=== PATIENT | male | born 1980 | race Caucasian/White ===

== ENCOUNTER 2017-02-13 08:28 | Emergency (ER) | payer BC, OTHER ==
[~2017-02-13] VITALS: Ht 182.9 cm; Wt 114.0 kg
[~2017-02-13 08:28] MED LIST: GLCPUNK PO
[2017-02-13 08:35] VITALS: BP 146/84; PULSE 76; TEMP 36.8; O2SAT 98; Ht 182.9 cm; Wt 114.0 kg
[2017-02-13] MEDS ORDERED: XYLOCAINE 1%/SOD BICARB 20 ML VIAL INFIL ONE (09:00)
[2017-02-13] MEDS ORDERED: CEPH500C2 PO (09:37)
--- NOTE | 2017-02-13 12:56 | EMERGENCY ROOM VISIT NOTE ---
ED Visit Note First contact with patient: 08:40 Chief Complaint: I stabbed my left thumb. History of Present Illness: Mr. Ji is a 36-year-old white male who ambulates into the ED complaining of a stabbing wound to the left thumb. Patient reports less than an hour ago he reports he was cutting open a box with a brand-new pocket knife and accidentally stabbed his finger. He reports the blade entered the lateral aspect of the thumb and came out the posterior aspect of the thumb causing 2 full-thickness lacerations. He reports she control bleeding prior to arrival at the hospital but did not clean the wound. Associated with his wound he is complaining of thumb pain. He describes this as a burning and throbbing sensation. He rates his discomfort 6/10. The pain is nonradiating. The pain worsens with palpation of the wound. He has not identified any alleviating factors related to the pain. He has not had a medications for pain prior to arrival at the hospital. Associated with his wound he reports he has mild numbness and tingling over the posterior aspect of the thumb. Review of Systems: As noted above in history of present illness. Past Medical History: Diabetes. Current Medications: Glucophage. Allergies to Medications: Penicillin. Social History: Patient is currently employed; he feels safe in his home environment; he admits to tobacco use and denies alcohol use. Tetanus Immunization Status: September 2010. Physical Examination: Vital Signs: Date Time Temp Pulse Resp B/P (MAP) Pulse Ox O2 Delivery O2 Flow Rate FiO2 02/13/17 08:35 36.8 76 18 146/84 98 Room Air GENERAL: 36-year-old male in mild distress due to pain, nontoxic-appearing, afebrile and hemodynamically stable. NEUROLOGICAL: Awake, alert and oriented to person, place and time. Answering questions appropriately and following commands. SKIN: Warm, dry and pink. Left Thumb: Stab wound producing to full-thickness lacerations measuring a total of 3.4 cm. No active bleeding. LEFT THUMB: Please see soft tissue injury as noted above. No gross bony deformity. No tenderness over the MCP or interphalangeal joint. Full range of motion in flexion, extension and abduction and abduction of the MCP and flexion and extension of the interphalangeal joint against resistance. Throughout the thumb the skin was warm and pink and capillary refill is brisk. He was able to distinguish light sensations through all dermatomes but reported mild paresthesias over the posterior thumb just distal to the interphalangeal joint. ED Course: Patient is assessed as noted above. Patient's medication list was reviewed. Patient was offered pain medication and refused. Wound Repair: Complexity: Basic Verbal consent was obtained after the risks and benefits were explained. The skin was prepped with betadine and a sterile field set. Wound edges of the wounds were anesthetized with a total of 3.4 ml buffered 1% lidocaine. The wounds were explored for foreign bodies and none found. Copious irrigation was performed using sterile saline. With direct pressure the bleeding subsided. Debridement was not performed. The wound edges were approximated using 5-0 Ethilon with a total of 10 simple interrupted sutures. Hemostasis and excellent approximation was achieved. Patient's thumb was placed in a metal thumb splint. Antibacterial ointment and a sterile dressing applied. No complications and the patient tolerated the procedure well. Patient was educated about tonight's findings and instructed on his treatment plan; he verbalizes understanding and agreement with this plan. Clinical Impression: Lacerations of the left thumb. Disposition: Patient discharged home in stable condition; prior to departure he was reassessed and subjectively reported he was pain-free. Plan: Comfort measures, wound care, and signs of infection were discussed with the patient. Patient was prescribed Keflex 500 mg 4 times a day for 7 days from biotic prophylaxis. Patient was encouraged to follow-up with PCP or return to the ED for any signs of infection, worsening thumb weakness/numbness/tingling or any new/concerning symptoms.
== END 2017-02-13 09:55 | disposition home or self-care (01) ==
LOC: C.EDB 08:31
DX: S61.012A Laceration without foreign body of left thumb without damage to nail, initial encounter (principal); W26.0XXA Contact with knife, initial encounter; E11.9 Type 2 diabetes mellitus without complications; F17.200 Nicotine dependence, unspecified, uncomplicated

== ENCOUNTER 2024-10-14 12:47 | Observation (INO) ==
[2024-10-14] MEDS: MAGNESIUM SULFATE / D5W 1 GM/100 ML BAG IV SCH (13:11)
[2024-10-14] MEDS: SODIUM CHLORIDE 0.9% 1,000 ML IV ONE (13:11)
[2024-10-14 13:24] LABS: Hematocrit (blood only) 48.1 % (42.0-52.0); Hemoglobin 16.4 g/dl (14.0-18.0); Immature Granulocytes # (auto) 0.08 K/uL (0.01-0.20); Immature Granulocytes % (auto) 0.5 %; Mean Corpuscular Hemoglobin 25.7 pg (25.0-34.0); Mean Corpuscular Volume 75.5 fL (80.0-100.0); Platelet Count 251 K/uL (130-400); RDW Standard Deviation 39.9 fL (36.4-46.3); Red Blood Count 6.37 M/uL (4.70-6.10); White Blood Count 16.12 K/ul (4.8-10.8)
[2024-10-14 13:45] LABS: Alanine Aminotransferase 11.0 U/L (7-52); Albumin Globulin Ratio 1.0 (0.9-2); Alkaline Phosphatase 73.0 U/L (34-104); Anion Gap 13.0 (3-11); Bilirubin,Total 0.8 mg/dl (0.2-1.0); Blood Urea Nitrogen 28.0 mg/dl (6-23); Calcium 9.9 mg/dl (8.6-10.3); Carbon Dioxide 21.0 mmol/L (21-32); Chloride 98.0 mmol/L (98-107); Creatinine Clr Calc Pharmacy 76.2 ml/min; Globulin 4.2 gm/dl (2.5-4.0); Glucose 270.0 mg/dl (70-99(Fasting)); Magnesium 2.5 mg/dl (1.7-2.4); Potassium 4.5 mmol/L (3.5-5.1); Sodium 132.0 mmol/L (136-145); Total Protein 8.5 gm/dl (6.0-8.3)
[2024-10-14 14:29] LABS: Influenza A virus by PCR Negative (Neg); Influenza B virus by PCR Negative (Neg); SARS CoV2 RNA(COVID-19) Ceph NEGATIVE (Negative)
[2024-10-14] MEDS: OPTIRAY 320 100ml IV ONE (14:40)
--- NOTE | 2024-10-14 15:12 | CT Scan Report ---
CHEST CT WITH CONTRAST CT DOSE: 889.03 mGy.cm HISTORY: Acute chest pain and shortness of breath Sternal infection, SOB, PNA TECHNIQUE: Multiaxial CT images of the chest were performed following the IV administration of 90 cc of Optiray. A dose lowering technique was utilized adhering to the principles of ALARA. COMPARISON: CT chest 10/31/2023 FINDINGS: Unremarkable thyroid. Mediastinal lymphadenopathy includes a right paratracheal 1.3 x 1.8 c m lymph node on image 50 series 4 which has increased in size from prior. There is a small pericardia l effusion noted along with associated pericardial thickening with adjacent inflammatory stranding. E xtensive coronary artery calcifications. Prior median sternotomy with findings suggestive of CABG. Th ere is inflammatory stranding both superficial and deep to the sternotomy wires. No drainable fluid c ollections. Incomplete bony healing of the sternotomy site with bony irregularity a lucency at the st ernal manubrial articulation. Trace right pleural effusion with subsegmental bibasilar dependent atelectasis. No pneumothorax or ai rspace consolidation typical for pneumonia. Central airways are patent. No acute upper abdominal abno rmality. Mild nonspecific distal esophageal wall thickening. Cholelithiasis. Probable hepatic steatos is. IMPRESSION: 1. Interval postoperative changes of prior median sternotomy and CABG. There is edema with inflammato ry stranding surrounding the sternotomy wires along with bony irregularity/lytic changes at the garcia al manubrial articulation. Findings are suggestive of cellulitis and osteomyelitis without abscess. 2. Small pericardial effusion with possible pericarditis. 3. Likely reactive mediastinal lymphadenopathy. 4. Trace right pleural effusion with mild subsegmental dependent atelectasis. ACT 112: Negative or not required by law. Electronically signed by: Goyo Dior M.D. 10/14/2024 3:10 PM
--- NOTE | 2024-10-14 15:51 | Electrocardiogram Report ---
Test Reason : Blood Pressure : */* mmHG Vent. Rate : 125 BPM Atrial Rate : * BPM P-R Int : * ms QRS Dur : 82 ms QT Int : 260 ms P-R-T Axes : * -35 110 degrees QTcB Int : 375 ms Atrial fibrillation with rapid ventricular response Left axis deviation possible Inferior infarct , age undetermined Confirmed by Stephan Ceron ([id number]) on 10/14/2024 3:51:02 PM Referred By: Confirmed By: Stephan Ceron
--- NOTE | 2024-10-14 16:11 | Emergency Department Note ---
Impression & Plan Elevated troponin, Atrial fibrillation, Sternal wound infection ED Provider Note NAME: FINA SANDERS AGE: 44 SEX: M : 1980 ARRIVES VIA: Walk-In INFORMANT: Patient, ED PROVIDER(S): Kylee Lindquist MD CHIEF COMPLAINT: Shortness of breath, fatigue, leg cramps, chest pain HPI: This is a 44-year-old male presented for chest pain, shortness of breath, fatigue. Patient notes that over the past few days he has had right-sided chest pain. he notes no specific fevers. He reports fatigue, leg cramps. He reports some slight shortness of breath with exertion. He reports previous history of triple bypass and complications related to the sternum or healing. He notes he has had infections of the sternum and is seen by wound care. His wound is finally closing up. He has no current pain, swelling over this region anymore. ROS: See above HPI for pertinent positives & negatives. A total of 10 systems reviewed and were otherwise negative. PAST MEDICAL HISTORY: See Below PAST SURGICAL HISTORY: See Below FAMILY HISTORY: See Below SOCIAL HISTORY: See Below HOME MEDICATIONS: See Below ALLERGIES: See Below VITALS: See Below PHYSICAL EXAMINATION: General: resting comfortably in no acute distress Head: Normocephalic and atraumatic Eyes: Normal inspection, extraocular muscles intact Ear, nose, throat: Normal external exam Neck: Normal range of motion Respiratory: lungs clear to auscultation bilaterally Cardiovascular: Regular rate/rhythm, no murmur Chest wall; pink granulation tissue overlying lower sternal border, no swelling, tenderness GI: soft, nontender, no guarding or rebound Extremities: nontender, moves all extremities Neuro: The patient awake and alert, appropriately conversive, no focal deficits, symmetric faces Skin: Warm, dry, and intact MEDICAL DECISION MAKING: This is a 44-year-old male presenting for chest pain, short of breath and fatigue. Patient is in new A-fib with RVR on arrival. His pulse rate was elevated at 120s. Upon arrival to the room he is at 100s. Consider upper respiratory infection, ACS, pericarditis, anemia. Patient on stable dose of Plavix without any missed doses for previous atrial fibrillation. Low concern for PE clinically due to the his blood thinner as well as no hypoxia. He has not missed any doses as per self-report. - Blood reviewed with a leukocytosis 16.12. Slight hyponatremia noted. Troponin elevated at 40s x2. - ECG independently interpreted by me with atrial fibrillation with RVR at a rate of 125, left axis devia osteomyelitis tion, normal QRS, normal QTc, no ST segment elevations consistent with STEMI criteria - Will do stat CT to rule out pneumonia, deep space infection due to this patient's previous dental wound appears normal does appear clinically well without signs of current infection on the surface - CT imaging does reveal possible cellulitis/osteomyelitis without abscess however clinically patient has no current pain overlying, no erythema, tenderness. - Otherwise there is reports a small pericardial effusion with possible pericarditis. -Due to patient's A-fib with RVR, elevated troponin pleural effusion/pericarditis, will admit the patient. Care discussed with Dr. Kay - Patient comfortable with this plan Differential diagnosis: ACS, PE, pericarditis, anemia, URI, pneumonia, PE Independent History obtained from: Diagnostics interpreted by me: ECG: See above Cardiac Monitoring: An order was placed for continuous cardiac monitoring. The monitor shows a rate of 101 with atrial fibrillation rhythm. 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 Durham [facility] Coronary artery disease Atrial fibrillation (Acute) Benign essential hypertension Dyslipidemia (high LDL; low HDL) Tobacco use disorder Type 2 diabetes mellitus Restless leg syndrome GERD without esophagitis Medical History Abnormal nuclear stress test Non-ST elevation [place] (NSTEMI) Erectile dysfunction Class 2 obesity Hypogonadism in male Subclinical hypothyroidism (~09/01/22) Surgical History Hx of CABG Hx of right knee surgery History of tonsillectomy and adenoidectomy Hx of sinus surgery History of throat surgery Hx of rotator cuff surgery Family History Father Diabetes COPD (chronic obstructive pulmonary disease) Myocardial infarction Grandmother (Maternal) Diabetes Grandmother (Paternal) Diabetes Parkinson disease Mother Diabetes COPD (chronic obstructive pulmonary disease) Sister Epilepsy Heart disease Grandfather (Maternal) Colorectal cancer Grandfather (Paternal) Diabetes Social History Smoking Status: Never smoker Tobacco Type: Smokeless Tobacco (Dip or Chew) Age Started Using Tobacco: 11; Age Quit Using Tobacco: 24; packs per day: 1; Do You Dip or Chew Tobacco: Yes; Hx Alcohol Use: No Hx Substance Use: No Preferred Language: Kiswahili Communication Ability: Effective Investigation Division Captain Required: No Beliefs That Will Affect Care: None marital status: Current Living Situation: Family Current Living Situation Comment: and kids current occupational status: employed current occupation: truck terminal manager Feels Safe at Home: Yes Assistive Devices: None Allergies Allergies Allergy/AdvReac Type Severity Reaction Status Date / Time prednisone Allergy Severe Unknown Verified 06/04/24 10:16 Penicillins Allergy Mild Hives Verified 06/04/24 10:16 Home Meds Home Medications Medication Instructions Recorded Confirmed aspirin 81 mg tablet,delayed 81 mg PO UD 08/15/22 10/14/24 release (Adult Low Dose Aspirin) magnesium oxide 0 mg PO HS 11/15/23 10/14/24 omeprazole 20 mg capsule,delayed 0 mg PO BID 10/14/24 10/14/24 release Previous Rx's Medication Instructions Recorded famotidine 40 mg tablet 40 mg PO DAILY #90 tabs 10/23/23 pen needle, diabetic 32 gauge x #300 ea 11/21/23" (BD Ultra-Fine June Pen Needle) tirzepatide 12.5 mg/0.5 mL 12.5 mg (0.5 mL) subcut .WEEKLY #4 03/28/24 subcutaneous pen injector syringes blood-glucose sensor (FreeStyle #4 ea 05/03/24 Jonathan 3 Plus Sensor device) clopidogrel 75 mg tablet 75 mg PO DAILY #90 tabs 05/20/24 empagliflozin 25 mg tablet 25 mg PO DAILY #90 tabs 05/28/24 (Jardiance) atorvastatin 80 mg tablet 80 mg PO DAILY #90 tabs 07/03/24 ropinirole 4 mg tablet 4 mg PO HS #90 tabs 07/03/24 metformin 1,000 mg tablet 1,000 mg PO BID #180 tabs 07/15/24 fenofibrate micronized 134 mg 134 mg PO QPM #90 caps 09/10/24 capsule metoprolol tartrate 50 mg tablet 50 mg PO BID #60 tabs 10/15/24 Results & Data (ED) Vital Signs Vital Signs - 24 hr 10/14/24 12:49 10/14/24 13:10 10/14/24 13:44 Temperature 36.6 C Temperature Source Temporal Artery Scan Pulse Rate 75 Pulse Rate [Apical] 111 H 101 H Pulse Rhythm [Apical] Irregular Respiratory Rate 18 96 H 20 Respiratory Effort / Characteristics Non-Labored Spontaneous Non-Labored Spontaneous Non-Labored Respiratory Depth Normal Normal Normal Respiratory Pattern Regular Blood Pressure 119/81 Blood Pressure [Right Arm] 151/90 H 117/84 Blood Pressure Mean 93 Blood Pressure Mean [Right Arm] 110 95 Pulse Oximetry 97 96 96 Oxygen Delivery Method Room Air Room Air Room Air Sepsis Recent Fever Within 48 Hours No Sepsis New/Unexplained Change in Mental Status N/A Sepsis Action Taken by Nursing No Action Required 10/14/24 13:50 10/14/24 14:53 10/14/24 15:14 Temperature Temperature Source Pulse Rate 103 H Pulse Rate [Apical] 99 H 89 Pulse Rhythm [Apical] Respiratory Rate 20 20 Respiratory Effort / Characteristics Non-Labored Non-Labored Respiratory Depth Normal Normal Respiratory Pattern Blood Pressure Blood Pressure [Right Arm] 118/80 110/84 Blood Pressure Mean Blood Pressure Mean [Right Arm] 92 92 Pulse Oximetry 94 94 Oxygen Delivery Method Room Air Room Air Sepsis Recent Fever Within 48 Hours Sepsis New/Unexplained Change in Mental Status Sepsis Action Taken by Nursing Laboratory Data 10/15/24 05:32 10/15/24 05:32 Lab Results 10/14/24 10/14/24 10/14/24 Range/Units 13:02 13:39 14:48 WBC 16.12 H (4.8-10.8) K/ul RBC 6.37 H (4.70-6.10) M/uL Hgb 16.4 (14.0-18.0) g/dl Hct 48.1 (42.0-52.0) % MCV 75.5 L (80.0-100.0) fL MCH 25.7 (25.0-34.0) pg MCHC 34.1 (32.0-36.0) g/dL RDW Std Deviation 39.9 (36.4-46.3) fL RDW Coeff of Saadia 15.8 H (11.5-14.5) % Plt Count 251 (130-400) K/uL MPV 11.3 (9.4-12.4) fL Immature Gran % (Auto) 0.5 % Neut % (Auto) 75.0 % Lymph % (Auto) 14.7 % [place] % (Auto) 9.2 % Eos % (Auto) 0.1 % Baso % (Auto) 0.5 % Neut # (Auto) 12.09 H (1.40-6.50) K/uL Lymph # (Auto) 2.37 (1.20-3.40) K/uL [place] # (Auto) 1.49 H (0.11-0.59) K/uL Eos # (Auto) 0.01 (0.00-0.50) K/uL Baso # (Auto) 0.08 (0.00-0.20) K/uL Immature Gran # (Auto) 0.08 (0.01-0.20) K/uL Sodium 132 L (136-145) mmol/L Potassium 4.5 (3.5-5.1) mmol/L Chloride 98 (98-107) mmol/L Carbon Dioxide 21 (21-32) mmol/L Anion Gap 13 H (3-11) BUN 28 H (6-23) mg/dl Creatinine 1.25 (0.6-1.4) mg/dl Est Cr Clr Drug Dosing 76.2 ml/min eGFR 71.92 BUN/Creatinine Ratio 22.4 H (10-20) Glucose 270 H (70-99(Fasting)) mg/dl Estimat Average Glucose 180 mg/dl Hemoglobin A1c 7.9 H (4.5-5.6) % Calcium 9.9 (8.6-10.3) mg/dl Magnesium 2.5 H (1.7-2.4) mg/dl Total Bilirubin 0.8 (0.2-1.0) mg/dl AST 11 L (13-39) U/L ALT 11 (7-52) U/L Alkaline Phosphatase 73 (34-104) U/L Troponin I High Sens 44.9 H 42.3 H (0-20) pg/ml Total Protein 8.5 H (6.0-8.3) gm/dl Albumin 4.3 (3.4-5.0) gm/dl Globulin 4.2 H (2.5-4.0) gm/dl Albumin/Globulin Ratio 1.0 (0.9-2) Free T3 2.81 (2.3-4.2) pg/ml SARS-CoV-2 (PCR) NEGATIVE (Negative) Influenza Type A (PCR) Negative (Neg) Influenza Type B (PCR) Negative (Neg) RSV (RT-PCR) Negative (Neg) Administered Medications Discontinued Medications Aspirin (Aspirin 81 Mg Ectab) 81 mg PO DAILY MISHA Stop: 11/14/24 08:59 Last Admin: 10/15/24 08:56 Dose: 81 mg Documented By: SARA Atorvastatin Calcium (Atorvastatin 40 Mg Tab) 80 mg PO DAILY MISHA Stop: 11/14/24 08:59 Last Admin: 10/15/24 08:37 Dose: 80 mg Documented By: SARA Clopidogrel Bisulfate (Clopidogrel Bisulfate 75 Mg Tab) 75 mg PO DAILY MISHA Stop: 11/14/24 08:59 Last Admin: 10/15/24 08:56 Dose: 75 mg Documented By: SARA Famotidine (Famotidine 40 Mg Tablet) 40 mg PO DAILY MISHA Stop: 11/14/24 08:59 Last Admin: 10/15/24 08:37 Dose: 40 mg Documented By: SARA Fenofibrate (Fenofibrate Nanocrystallized 145 Mg Tablet) 145 mg PO QPM MISHA Stop: 11/13/24 20:59 Last Admin: 10/14/24 21:36 Dose: 145 mg Documented By: MOSES Sodium Chloride (Nss) 1,000 mls @ 999 mls/hr IV .Q1H1M ONE Stop: 10/14/24 13:58 Last Infusion: 10/14/24 13:59 Dose: Infused Documented By: Admin: 10/14/24 13:11 Dose: 999 mls/hr Documented By: SUSIE Magnesium Sulfate/Dextrose (Magnesium Sulfate / D5w) 1 gm in 100 mls @ 200 mls/hr IV Q30M MISHA Stop: 10/14/24 13:57 Last Infusion: 10/14/24 14:53 Dose: Infused Documented By: LUIS A Admin: 10/14/24 13:59 Dose: 200 mls/hr Documented By: Infusion: 10/14/24 13:41 Dose: Infused Documented By: Admin: 10/14/24 13:11 Dose: 200 mls/hr Documented By: SUSIE Sodium Chloride (Nss) 1,000 mls @ 80 mls/hr IV .[id number] [facility] Stop: 10/17/24 19:21 Last Admin: 10/15/24 08:57 Dose: Not Given Documented By: Infusion: 10/15/24 08:57 Dose: Infused Documented By: Admin: 10/14/24 20:40 Dose: 80 mls/hr Documented By: MOSES Insulin Aspart (Insulin Aspart Per Unit Charge) 0 units SC ACHS [facility] Stop: 11/13/24 19:21 Last Admin: 10/15/24 17:34 Dose: Not Given Documented By: Admin: 10/15/24 12:52 Dose: 4 units Documented By: SARA Co-signed By: ANATOLY Admin: 10/15/24 08:56 Dose: Not Given Documented By: Admin: 10/14/24 20:41 Dose: Not Given Documented By: Admin: 10/14/24 19:54 Dose: 3 units Documented By: SHAHIDA Co-signed By: NICOLE Ioversol (Optiray 320 100ml) 90 ml IV ONCE ONE Stop: 10/14/24 14:41 Last Admin: 10/14/24 14:40 Dose: 90 ml Documented By: DILCIA Magnesium Oxide (Magnesium Oxide 400 Mg Tab) 200 mg PO HS MISHA Stop: 11/13/24 20:59 Last Admin: 10/14/24 21:05 Dose: 200 mg Documented By: MOSES Metoprolol Tartrate (Metoprolol Tartrate 50 Mg Tab) 50 mg PO BID MISHA Stop: 11/13/24 20:59 Last Admin: 10/15/24 08:56 Dose: 50 mg Documented By: Admin: 10/14/24 21:36 Dose: 50 mg Documented By: MOSES Miscellaneous (Order Awaiting Action---Jardiance 25mg) 1 each N/A QS [facility] Stop: 11/14/24 00:00 Last Admin: 10/15/24 15:04 Dose: Not Given Documented By: Admin: 10/15/24 08:36 Dose: Not Given Documented By: Admin: 10/14/24 23:04 Dose: Not Given Documented By: MOSES Ropinirole HCl (Ropinirole Hcl 2 Mg Tablet) 4 mg PO HS MISHA Stop: 11/13/24 20:59 Last Admin: 10/14/24 21:05 Dose: 4 mg Documented By: MOSES Imaging Data Radiologist's Impression: Chest CT 10/14/24 13:[address] WITH CONTRAST CT DOSE: 889.03 mGy.cm HISTORY: Acute chest pain and shortness of breath Sternal infection, SOB, PNA TECHNIQUE: Multiaxial CT images of the chest were performed following the IV administration of 90 cc of Optiray. A dose lowering technique was utilized adhering to the principles of ALARA. COMPARISON: CT chest 10/31/2023 FINDINGS: Unremarkable thyroid. Mediastinal lymphadenopathy includes a right paratracheal 1.3 x 1.8 cm lymph node on image 50 series 4 which has increased in size from prior. There is a small pericardial effusion noted along with associated pericardial thickening with adjacent inflammatory stranding. Extensive coronary artery calcifications. Prior median sternotomy with findings suggestive of CABG. There is inflammatory stranding both superficial and deep to the sternotomy wires. No drainable fluid collections. Incomplete bony healing of the sternotomy site with bony irregularity a lucency at the sternal manubrial articulation. Trace right pleural effusion with subsegmental bibasilar dependent atelectasis. No pneumothorax or airspace consolidation typical for pneumonia. Central airways are patent. No acute upper abdominal abnormality. Mild nonspecific distal esophageal wall thickening. Cholelithiasis. Probable hepatic steatosis. IMPRESSION: 1. Interval postoperative changes of prior median sternotomy and CABG. There is edema with inflammatory stranding surrounding the sternotomy wires along with bony irregularity/lytic changes at the sternal manubrial articulation. Findings are suggestive of cellulitis and osteomyelitis without abscess. 2. Small pericardial effusion with possible pericarditis. 3. Likely reactive mediastinal lymphadenopathy. 4. Trace right pleural effusion with mild subsegmental dependent atelectasis. ACT 112: Negative or not required by law. Electronically signed by: Goyo Dior M.D. 10/14/2024 3:10 PM Discharge Plan Visit Data Chief Complaint: Illness Stated Complaint: LIGHT HEADED, ALWAYS TIRED, BREATHING PROBLEMS ED Provider: Kylee Lindquist Discharge Problem: Elevated troponin, Atrial fibrillation, Sternal wound infection Patient Disposition: Admitted As Inpatient Condition: Fair Discharge Instructions Interventions: ED Discharge Assessment Last Done: 10/14/24 20:03
--- NOTE | 2024-10-14 16:39 | History & Physical Report ---
Date of Service October 14, 2024 Assessment & Plan (1) Viral gastritis: Plan: IV fluids. Clear liquids for now and advance as tolerated. Parenteral antiemetics. IV fluids. (2) Atrial fibrillation: Plan: Recurrent atrial fibs flutter. Telemetry. Increase metoprolol dosage. Continue aspirin and Plavix therapy. (3) Elevated troponin: Plan: Doubt acute coronary syndrome. No acute EKG changes. Telemetry. Serial troponin levels (4) Coronary artery disease: Plan: History of coronary artery bypass grafting in October 2023 complicated by chronic sternal infection and osteomyelitis. Continue current medical management. Telemetry (5) Type 2 diabetes mellitus: Plan: Clear liquids for now. Advance as tolerated to ADA diet. Sliding scale coverage. Continue Jardiance (6) Benign essential hypertension: Plan: Stable. Continue current medical management Plan Observation with telemetry. IV fluids. Antiemetics. Serial troponin levels. Hopefully home tomorrowOctober 15 History of Present Illness Chief Complaint: Nausea vomiting and fatigue of 2 days duration Primary Care Provider: DELIA Toscano 44-year-old male who has had 2 days of fatigue with nausea and some vomiting. Intermittent low-grade fever. Vague right-sided chest discomfort that is sharp in nature and only with deep inspiration. He was found to have recurrent atrial fibrillation on admission. His last episode was after his open heart surgery back in October 2023. Troponin is minimally elevated. Chest CT scan reveals a small pericardial effusion with some inflammatory stranding and evidence of sternal cellulitis with possible underlying osteomyelitis. This is not new. He is in no distress at this time. Heart rate is minimally elevated and appears to be atrial flutter at this time with mild tachycardia. Metoprolol dosage will be uptitrated. I suspect he has a viral illness causing the acute onset of fatigue, nausea, and vomiting. No diarrhea. No other family members are ill. He denies hematemesis. He is placed in observation with telemetry for further evaluation and treatment. Allergies Allergy/AdvReac Type Severity Reaction Status Date / Time prednisone Allergy Severe Unknown Verified 06/04/24 10:16 Penicillins Allergy Mild Hives Verified 06/04/24 10:16 Home Medications Medication Instructions Recorded Confirmed Type aspirin 81 mg tablet,delayed 81 mg PO UD 08/15/22 10/14/24 History release (Adult Low Dose Aspirin) famotidine 40 mg tablet 40 mg PO DAILY #90 tabs 10/23/23 10/14/24 Rx magnesium oxide 0 mg PO HS 11/15/23 10/14/24 History pen needle, diabetic 32 gauge x #300 ea 11/21/23 06/04/24 Rx 5/32" (BD Ultra-Fine June Pen Needle) tirzepatide 12.5 mg/0.5 mL 12.5 mg (0.5 mL) subcut .WEEKLY #4 03/28/24 10/14/24 Rx subcutaneous pen injector syringes blood-glucose sensor (FreeStyle #4 ea 05/03/24 06/04/24 Rx Jonathan 3 Plus Sensor device) clopidogrel 75 mg tablet 75 mg PO DAILY #90 tabs 05/20/24 10/14/24 Rx empagliflozin 25 mg tablet 25 mg PO DAILY #90 tabs 05/28/24 10/14/24 Rx (Jardiance) atorvastatin 80 mg tablet 80 mg PO DAILY #90 tabs 07/03/24 10/14/24 Rx ropinirole 4 mg tablet 4 mg PO HS #90 tabs 07/03/24 10/14/24 Rx metformin 1,000 mg tablet 1,000 mg PO BID #180 tabs 07/15/24 10/14/24 Rx fenofibrate micronized 134 mg 134 mg PO QPM #90 caps 09/10/24 10/14/24 Rx capsule metoprolol tartrate 25 mg tablet 25 mg PO BID #180 tabs 09/25/24 10/14/24 Rx cyclobenzaprine 10 mg tablet 0 mg PO BID 10/14/24 10/14/24 History omeprazole 20 mg capsule,delayed 0 mg PO BID 10/14/24 10/14/24 History release Past Med/Surg History Problem List (Updated 10/14/24 @ 16:37 by Rylan Leon MD) Coronary artery disease Elevated troponin Viral gastritis Sternal wound infection S/P CABG x 3 (~11/07/23) SEN-LAD, free CARL-OM2, SVG-PLB by Dr. Durham [facility] Coronary artery disease Atrial fibrillation Benign essential hypertension Dyslipidemia (high LDL; low HDL) Tobacco use disorder Type 2 diabetes mellitus Restless leg syndrome GERD without esophagitis Medical History Abnormal nuclear stress test Non-ST elevation DE (NSTEMI) Erectile dysfunction Class 2 obesity Hypogonadism in male Subclinical hypothyroidism (~09/01/22) Surgical History Hx of CABG Hx of right knee surgery History of tonsillectomy and adenoidectomy Hx of sinus surgery History of throat surgery Hx of rotator cuff surgery Family History Father Diabetes COPD (chronic obstructive pulmonary disease) Myocardial infarction Grandmother (Maternal) Diabetes Grandmother (Paternal) Diabetes Parkinson disease Mother Diabetes COPD (chronic obstructive pulmonary disease) Sister Epilepsy Heart disease Grandfather (Maternal) Colorectal cancer Grandfather (Paternal) Diabetes Social History Smoking Status: Former smoker Tobacco Type: Smokeless Tobacco (Dip or Chew) Age Started Using Tobacco: 11; Age Quit Using Tobacco: 24; packs per day: 1; Do You Dip or Chew Tobacco: Yes; Hx Alcohol Use: No Hx Substance Use: No Preferred Language: Icelandic Communication Ability: Effective Director Of Operations For Therapy Required: No Beliefs That Will Affect Care: None marital status: Current Living Situation: Family Current Living Situation Comment: and kids current occupational status: employed current occupation: [employer] truck driver Feels Safe at Home: Yes Assistive Devices: None Review of Systems 2 Review of Systems: Constitutionalno fever or chills ENTno blurred vision, no double vision, no epistaxis, no sore throat Respiratoryno cough, no wheezing, no shortness of breath Cardiacno palpitations, no syncope. Intermittent fleeting inspiratory sharp right upper chest discomfort GI24 to 48 hours of nausea and intermittent vomiting. No hematemesis. No diarrhea, melena, hematochezia GUno urinary retention, no urinary incontinence, no dysuria, no hematuria Musculoskeletalno joint pain, no muscle tenderness Skinno bruising, no rashes, no pruritus Neurono isolated weakness, no paresthesia, no weakness Psychno depression, no anxiety Physical Exam 2 Physical Exam: General-alert and oriented x3, no fever, no chills HEENT-head atraumatic and normocephalic, pupils equal and reactive to light, extraocular muscles intact Neck-no lymphadenopathy or thyromegaly, trachea midline Chest-clear to auscultation. No rales, wheezing or rhonchi Cardiac-slightly irregular mildly tachycardic rate and rhythm. Mormal S1 and S2 Abdomen-normal bowel sounds, no hepatosplenomegaly Extremities-no cyanosis, clubbing, or edema Neuro-cranial nerves II through XII intact, motor and sensory function within normal limits, strength symmetrical, no focal deficits Psych-normal affect, normal mood Results & Data Results & Data Vital Signs (Past 12 Hours) Vital Signs Temp Pulse Pulse Resp BP BP Pulse Ox 10/14/24 15:14 89 20 110/84 94 10/14/24 14:53 99 H 20 118/80 94 10/14/24 13:50 103 H 10/14/24 13:44 101 H 20 117/84 96 10/14/24 13:10 111 H 96 H 151/90 H 96 10/14/24 12:49 36.6 C 75 18 119/81 97 O2 Del Method 10/14/24 15:14 Room Air 10/14/24 14:53 Room Air 10/14/24 13:50 10/14/24 13:44 Room Air 10/14/24 13:10 Room Air 10/14/24 12:49 Room Air Laboratory Results 10/14/24 13:02 10/14/24 13:02 Code Status & VTE Plan Code Status Full code PG Care Time/CCT Total # of Minutes Spent Total Time Spent with Patient: Total time spent is greater than 50% in coordination of care (as documented) at patient's floor/unit and/or counseling patient: Coding Level of Care Code 73404 INT INP/OBS CARE 3/75MIN Diagnoses Viral gastritis K29.70 Atrial fibrillation I48.91 Elevated troponin R79.89 Coronary artery disease I25.10 Type 2 diabetes mellitus without complication, without long-term current use of insulin E11.9 Diabetes mellitus chcf insulin use: without chcf use Diabetes mellitus complication status: without complication Benign essential hypertension I10 (5) Type 2 diabetes mellitus Diabetes mellitus termite renewal inspector insulin use: without termite renewal inspector use Diabetes mellitus complication status: without complication Qualified Code(s): E11.9 - Type 2 diabetes mellitus without complications
[2024-10-14] MEDS ORDERED: ACETAMINOPHEN 1,000 MG/100 ML VIAL IV PRN (19:22)
[2024-10-14] MEDS ORDERED: GLUCAGON FOR INJ 1 MG VIAL SQ PRN (19:22)
[2024-10-14] MEDS ORDERED: ONDANSETRON INJ 2 MG/ML 2 ML VIAL IV PRN (19:22)
[2024-10-14] MEDS ORDERED: DEXTROSE 50% 50 ML SYRINGE IV PRN (19:22)
[2024-10-14] MEDS ORDERED: CARBOHYDRATES FOR HYPOGLYCEMIA PO PRN (19:22)
[2024-10-14] MEDS ORDERED: GLUCOSE 10 TAB/TUBE PO PRN (19:22)
[2024-10-14] MEDS ORDERED: GLUCOSE 40% GEL 15 GM TUBE PO PRN (19:22)
[2024-10-14] MEDS: INSULIN ASPART PER UNIT CHARGE SC SCH (19:54)
[2024-10-14] MEDS: SODIUM CHLORIDE 0.9% 1,000 ML IV SCH (20:40)
[2024-10-14] MEDS: MAGNESIUM OXIDE 400 MG TAB PO SCH (21:05)
[2024-10-14] MEDS: FENOFIBRATE NANOCRYSTALLIZED 145 MG TABLET PO SCH (21:36)
[2024-10-14] MEDS: METOPROLOL TARTRATE 50 MG TAB PO SCH (21:36)
[2024-10-14 21:52] LABS: Hemoglobin A1C 7.9 % (4.5-5.6)
[2024-10-15 06:31] LABS: Alanine Aminotransferase 7.0 U/L (7-52); Albumin Globulin Ratio 1.2 (0.9-2); Alkaline Phosphatase 43.0 U/L (34-104); Anion Gap 8.0 (3-11); Bilirubin,Total 0.7 mg/dl (0.2-1.0); Blood Urea Nitrogen 22.0 mg/dl (6-23); Calcium 8.4 mg/dl (8.6-10.3); Carbon Dioxide 23.0 mmol/L (21-32); Chloride 105.0 mmol/L (98-107); Creatinine Clr Calc Pharmacy 118.1 ml/min; Globulin 3.0 gm/dl (2.5-4.0); Glucose 98.0 mg/dl (70-99(Fasting)); Potassium 4.1 mmol/L (3.5-5.1); Sodium 136.0 mmol/L (136-145); Total Protein 6.6 gm/dl (6.0-8.3)
[2024-10-15 06:41] LABS: Hematocrit (blood only) 38.3 % (42.0-52.0); Hemoglobin 13.0 g/dl (14.0-18.0); Immature Granulocytes # (auto) 0.03 K/uL (0.01-0.20); Immature Granulocytes % (auto) 0.3 %; Mean Corpuscular Hemoglobin 26.0 pg (25.0-34.0); Mean Corpuscular Volume 76.6 fL (80.0-100.0); Platelet Count 194 K/uL (130-400); RDW Standard Deviation 41.0 fL (36.4-46.3); Red Blood Count 5.00 M/uL (4.70-6.10); White Blood Count 9.77 K/ul (4.8-10.8)
[2024-10-15 08:10] VITALS: BP 121/71; RESP 18; TEMP 98.2; O2SAT 97
[2024-10-15] MEDS: FAMOTIDINE 40 MG TABLET PO SCH (08:37)
[2024-10-15] MEDS: ATORVASTATIN 40 MG TAB PO SCH (08:37)
[2024-10-15] MEDS: ASPIRIN 81 MG ECTAB PO SCH (08:56)
[2024-10-15] MEDS: CLOPIDOGREL BISULFATE 75 MG TAB PO SCH (08:56)
--- NOTE | 2024-10-15 10:43 | Discharge Summary ---
Discharge Summary Date of Service October 15, 2024 Principal Dx & Hospital Course #1 = Principal Diagnosis (1) Viral gastritis: Resolved. No further nausea and vomiting. Diet has been advanced. IV fluids discontinued. (2) Atrial fibrillation: Recurrent atrial fib/ flutter on admission. He has since converted back to normal sinus rhythm. Telemetry while hospitalized. Metoprolol dosage has been increased. Continue aspirin and Plavix therapy. (3) Elevated troponin: Doubt acute coronary syndrome. No acute EKG changes. Telemetry. Serial troponin levels are not trending and are minimally elevated (4) Coronary artery disease: History of coronary artery bypass grafting in October 2023 complicated by chronic sternal infection and osteomyelitis. Continue current medical management. Telemetry (5) Type 2 diabetes mellitus: Diet has been advanced. Nausea and vomiting has resolved. Sliding scale coverage while hospitalized. Continue Jardiance (6) Benign essential hypertension: Stable. Continue current medical management Plan Home today, October 15 Admission HPI Per Admitting Provider 44-year-old male who has had 2 days of fatigue with nausea and some vomiting. Intermittent low-grade fever. Vague right-sided chest discomfort that is sharp in nature and only with deep inspiration. He was found to have recurrent atrial fibrillation on admission. His last episode was after his open heart surgery back in October 2023. Troponin is minimally elevated. Chest CT scan reveals a small pericardial effusion with some inflammatory stranding and evidence of sternal cellulitis with possible underlying osteomyelitis. This is not new. He is in no distress at this time. Heart rate is minimally elevated and appears to be atrial flutter at this time with mild tachycardia. Metoprolol dosage will be uptitrated. I suspect he has a viral illness causing the acute onset of fatigue, nausea, and vomiting. No diarrhea. No other family members are ill. He denies hematemesis. He is placed in observation with telemetry for further evaluation and treatment. Discharge Exam General-alert and oriented x3, no fever, no chills HEENT-head atraumatic and normocephalic, pupils equal and reactive to light, extraocular muscles intact Neck-no lymphadenopathy or thyromegaly, trachea midline Chest-clear to auscultation. No rales, wheezing or rhonchi Cardiac-regular rhythm. Normal rate. Normal S1 and S2 Abdomen-normal bowel sounds, no hepatosplenomegaly Extremities-no cyanosis, clubbing, or edema Neuro-cranial nerves II through XII intact, motor and sensory function within normal limits, strength symmetrical, no focal deficits Psych-normal affect, normal mood Discharge Plan Discharge Items Patient Disposition: Home - Self-Care Reason For Visit: VIRAL GASTRITIS, RECURRENT ATRAIL FIB/FLUTTER Discharge Diagnosis: Viral gastritis with nausea and vomiting, recurrent atrial fibs/flutter Activity: Resume your previous activity Non-emergency contact: Primary Care Provider Call non-emergency contact if: your symptoms worsen Follow-up/Referrals: Lorelei Beltre CRNP [Nurse Practitioner] - 10/30/24 7:00 am Diet: Carb Consistent or DM2 and Heart Healthy Addtl Attending Provider Instructions: Metoprolol dosage has been increased. New prescription has been sent to your pharmacy. All other medications remain the same. May return to work without restriction on , October 17 Pending Studies at Discharge: No Stand-Alone Forms: [employer], Work/School Release, Smoking Cessation Medications and DC Order Prescriptions: New metoprolol tartrate 50 mg Tablet 50 mg PO BID Qty: 60 0RF Continued famotidine 40 mg tablet 40 mg PO DAILY Qty: 90 3RF (DME) pen needle, diabetic [BD Ultra-Fine June Pen Needle] 32 gauge x 5/32" needle See Rx Instructions .Route Qty: 300 3RF Rx Instructions: Dx E11.9 Use TID As directed tirzepatide 12.5 mg/0.5 mL pen injector 12.5 mg subcut .WEEKLY Qty: 4 3RF (DME) FreeStyle Jonathan 3 Plus Sensor Device See Rx Instructions .Route Qty: 4 3RF Rx Instructions: As directed clopidogrel 75 mg tablet 75 mg PO DAILY Qty: 90 3RF Jardiance 25 mg tablet 25 mg PO DAILY Qty: 90 1RF atorvastatin 80 mg tablet 80 mg PO DAILY Qty: 90 3RF ropinirole 4 mg tablet 4 mg PO HS Qty: 90 3RF metformin 1,000 mg tablet 1,000 mg PO BID Qty: 180 0RF fenofibrate micronized 134 mg capsule 134 mg PO QPM Qty: 90 3RF aspirin [Adult Low Dose Aspirin] 81 mg tablet,delayed release (DR/EC) 81 mg PO UD Patient Comments: 10/14- otc unable to verify magnesium oxide 250 mg magnesium tablet 0 mg PO HS Patient Comments: 10/14- otc unable to verify omeprazole 20 mg capsule,delayed release(DR/EC) 0 mg PO BID Patient Comments: 10/14- last filled 06/24/24 30 day supply #30 40mg po daily. Discontinued metoprolol tartrate 25 mg tablet 25 mg PO BID Qty: 180 0RF cyclobenzaprine 10 mg tablet 0 mg PO BID Patient Comments: 10/14-last filled 06/04/24 10 day supply #20 Rx Instructions: may make you sleepy Discharge Orders: Discharge Order (Routine); Ordered 10/15/24 Ordered By: Rylan Leon Admission Data Admit Date/Time: 10/14/24 16:17 Attending Provider: Rylan Leon Admit Provider: Rylan Leon Primary Care Provider: Dariela Kidd Other Providers: Rylan Leon Hospital Stay Data Consultations 10/14/24 15:30 ED Decision to Admit Stat Diagnostic Imagining Performed 10/14/24 13:48 CT chest diagnostic w con Stat Pending Results Patient Have Any Pending Studies at Discharge: No Discharge Instructions Given to Patient (Per Discharging Provider) Metoprolol dosage has been increased. New prescription has been sent to your pharmacy. All other medications remain the same. May return to work without restriction on October 17 Total Time Total Time Spent Total Time Spent (In Minutes): 45 minutes Coding Level of Care Code 47843 INP/OBS DISCH >30 MIN Diagnoses Viral gastritis K29.70 Atrial fibrillation I48.91 Elevated troponin R79.89 Coronary artery disease I25.10 Type 2 diabetes mellitus without complication, without long-term current use of insulin E11.9 Diabetes mellitus fdc insulin use: without fdc use Diabetes mellitus complication status: without complication Benign essential hypertension I10
--- NOTE | 2024-10-15 11:16 | Electrocardiogram Report ---
Test Reason : Blood Pressure : */* mmHG Vent. Rate : 70 BPM Atrial Rate : 70 BPM P-R Int : 194 ms QRS Dur : 110 ms QT Int : 412 ms P-R-T Axes : 13 -19 0 degrees QTcB Int : 444 ms Normal sinus rhythm possible Inferior infarct (cited on or before 31-Oct-2023) Abnormal ECG When compared with ECG of 14-Oct-2024 12:56, Sinus rhythm has replaced Atrial fibrillation Vent. rate has decreased by 55 bpm Questionable change in QRS duration Criteria for Anterior infarct are no longer Present Criteria for Anterolateral infarct are no longer Present Confirmed by Stephan Ceron ([id number]) on 10/15/2024 11:16:06 AM Referred By: REFERRED SELF Confirmed By: Stephan Ceron
[2024-10-15 14:04] VITALS: PULSE 73
--- NOTE | 2024-10-15 17:57 | XCELERA ---
[id number] \\[id number]
== END 2024-10-15 18:09 | disposition home or self-care (01) ==
LOC: SUATTDRO → EDINP 12:47 → ED 12:47 → 2N 20:03